=== PATIENT | female | born 1960 | race Caucasian/White ===

== ENCOUNTER → 2023-04-25 13:50 | Outpatient (REF) | payer OTHER, SELFPAY | LOC: RAD 13:50 | PROVIDERS: ATTENDING PHYSICIAN Family Medicine | DX: R10.11 Right upper quadrant pain (principal) | CPT/HCPCS: 76700 ==

== ENCOUNTER → 2023-05-22 07:45 | Outpatient (REF) | payer OTHER, SELFPAY | LOC: HWWDC 07:45 | PROVIDERS: ATTENDING PHYSICIAN Obstetrics & Gynecology; FAMILY PHYSICIAN Family Medicine | DX: Z12.31 Encounter for screening mammogram for malignant neoplasm of breast (principal) | CPT/HCPCS: 77063; 77067 ==

== ENCOUNTER 2024-05-02 06:24 | Day surgery (SDC) | payer MEDICARE, OTHER, SELFPAY | END 2024-05-02 09:59 | disposition home or self-care (01) | LOC: GI 06:24 | PROVIDERS: ATTENDING PHYSICIAN Specialist | DX: Z12.11 Encounter for screening for malignant neoplasm of colon (principal); K57.30 Diverticulosis of large intestine without perforation or abscess without bleeding; Z86.0101 Personal history of adenomatous and serrated colon polyps | CPT/HCPCS: G0105 ==

== ENCOUNTER → 2024-05-27 06:55 | Outpatient (REF) | payer MEDICARE, OTHER, SELFPAY | LOC: HWWDC 06:55 | PROVIDERS: ATTENDING PHYSICIAN Obstetrics & Gynecology; FAMILY PHYSICIAN Family Medicine | DX: Z78.0 Asymptomatic menopausal state (principal); Z12.31 Encounter for screening mammogram for malignant neoplasm of breast | CPT/HCPCS: 77063; 77067; 77080 ==

== ENCOUNTER 2024-06-02 07:51 | Emergency (ER) | payer MEDICARE, OTHER, SELFPAY ==
[2024-06-02 07:58] VITALS: BP 137/83
[2024-06-02 10:11] VITALS: BMI 20.6
[2024-06-02 10:27] LABS: % Basophils 0.3 % (0-2); % Eosinophils 0.2 % (0-6); % Immature Granulocytes 0.4 % (0-0.5); % Lymphocytes 8.2 % (20.5-51.1); % Neutrophils 84.9 % (42.2-75.2); Absolute Lymphocytes 0.9 10^3/uL (1.2-3.4); Absolute Monocytes 0.7 10^3/uL (0.1-0.6); Absolute Neutrophils 9.4 10^3/uL (1.4-6.5); Hematocrit 42.4 % (37.0-47.0); Mean Corp Hgb Conc. 35.4 g/dL (33.0-37.0); Mean Corpuscular Hgb 30.1 pg (27.0-31.0); Mean Platelet Volume 8.1 fL (7.4-10.4); Nucleated Red Blood Cells % 0 %; Platelet Count 204 10^3/uL (130-400); Red Blood Cell Count 4.99 10^6/uL (4.20-5.40); Red Cell Dist. Width 12.1 % (11.5-14.5)
[2024-06-02 10:36] LABS: Urine Albumin Negative (Neg - Trace); Urine Bilirubin Negative (Negative); Urine Character Clear (Clear); Urine Color Yellow; Urine Glucose Negative (Negative); Urine Ketone 3+ (Negative); Urine Leukocyte 2+ (Negative); Urine Nitrite Negative (Negative); Urine Occult Blood Negative (Negative); Urine Urobilinogen Negative (Neg - 1+)
[2024-06-02 11:05] LABS: ALT (SGPT) 17 U/L (0-35); AST (SGOT) 27 U/L (14-36); Albumin 3.9 g/dl (3.5-5.0); Alkaline Phosphatase 90 U/L (38-126); Blood Urea Nitrogen 14 mg/dl (7-17); Calcium 9.2 mg/dl (8.4-10.2); Carbon Dioxide 28 mmol/L (22-30); Chloride 106 mmol/L (98-107); Estimated Creatinine Clearance 55 ml/min; Glucose 102 mg/dl (70-99); Potassium 4.6 mmol/L (3.5-5.1); Sodium 139 mmol/L (135-145); Total Bilirubin 1.1 mg/dl (0.2-1.3); Total Protein 6.8 g/dl (6.3-8.2); eGFR > 60.00
[2024-06-02 11:42] LABS: Urine Red Blood Cell 0-2 /HPF (0-2)
--- NOTE | 2024-06-02 11:52 | ED.GENMED ---
History of Present Illness
General
Chief Complaint: Abdominal Symptoms
Source: patient
Exam Limitations: none
Time Seen by Provider: 06/02/24 09:51
Nursing documentation reviewed up to this point in time: agreed with
History of Present Illness
History of Present Illness:
64-year-old female with no significant past medical history presents for 'pelvic pain' for the past 2 days. While she was here, when she urinated she had 'a little pain and spasm' at the start of urination. She developed low back pain this
morning. She has had a temperature of 99.5. Walking makes the pain worse, sitting still it is relieved. 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
Denies n/v/d/c.
Past History
Past History
ED Past Medical History: None
ED Past Surgical History: Orthopedic
Social History
Tobacco: Non-smoker
Alcohol: None
Drug: None
Personal:
Living: with family
Employment: Employed
Family History
Family History: Hypertension
Review of Systems
Review of Systems
Allergies reviewed?: Yes
All Other Systems: ROS reviewed and negative except as documented in HPI and ROS
Constitutional: Reports fever (low grade)
Respiratory: Denies cough or trouble breathing
Cardiac: Denies chest pain
ABD/GI: Reports abdominal pain and nausea; Denies vomiting, diarrhea, constipated, bloody stools, black stools or anorexia
: Denies dysuria, frequency, difficulty voiding or urgency
Musculoskeletal: Reports back pain (bilateral lower back pain started this a.m.); Denies edema
Skin: Reports no symptoms
Neurological: Reports no symptoms
Phy Exam
Physical Exam
Physical Exam:
GENERAL: No acute distress. A&Ox3.
CONSTITUTIONAL: Afebrile.
EYES: clear, conjunctivae normal
ENMT: moist mucus membranes, Pharynx nl
RESPIRATORY: Regular respirations, nonlabored, lungs clear.
CARDIOVASCULAR: Regular rate and rhythm, no murmurs, no rubs.
GI: Soft, tender suprapubic to LLQ, nondistended, normal BS
MUSCULOSKELETAL: Moves with ease. Well perfused.
SKIN: Warm, dry, pink
PSYCH: Normal mood and affect. Well kept, interactive and appropriate
NEUROLOGIC: Awake, alert and oriented. No focal neurological deficits
Course
Orders/Labs/Results
Orders:
Orders
06/02/24 10:18
Complete Blood Count/With Diff Urgent
Comprehensive Metabolic Panel Urgent
06/02/24 10:27
Urinalysis Reflex To Culture Urgent
Date Specimen was Collected: 06/02/24
Time Specimen was Collected: 10:19
Urine Microscopic Reflex Cult Urgent
Urine Culture Urgent
[place] Source: U
Specimen Description:
Date Specimen was Collected: 06/02/24
Time Specimen was Collected: 10:19
06/02/24 12:03
CT Abd/pel W Iv And Oral Contr Urgent
Comment:
Reason For Exam: suprapubic to LLQ pain, low back pain
Iohexol [Omnipaque] 50 ml .ROUTE .STK-MED ONE
Iohexol [Omnipaque] See Protocol PO NOW STA
06/02/24 12:04
Hydrocortisone Sod Succinate [Solu-Cortef] 200 mg IV NOW STA
06/02/24 12:11
Hydrocortisone Sod Succinate [Solu-Cortef] 100 mg .ROUTE .STK-MED ONE
06/02/24 13:06
Diphenhydramine [Benadryl] 50 mg IV NOW STA
Abnormal Lab Results
06/02/24 06/02/24
10:18 10:27
WBC 11.0 H 10^3/uL
(4.8-10.8)
Absolute Neuts (auto) 9.4 H 10^3/uL
(1.4-6.5)
Absolute Lymphs (auto) 0.9 L 10^3/uL
(1.2-3.4)
Absolute Monos (auto) 0.7 H 10^3/uL
(0.1-0.6)
Neutrophils % 84.9 H %
(42.2-75.2)
Lymphocytes % 8.2 L %
(20.5-51.1)
Glucose 102 H mg/dl
(70-99)
Urine Ketones 3+ A
(Negative)
Leukocyte Esterase Rfl 2+ A
(Negative)
06/02/24 10:18
06/02/24 10:18
Vital Signs
Initial and Last Documented VS:
Initial Vital Signs
Temp Pulse Resp BP Pulse Ox
99.5 F 110 16 137/83 98
06/02/24 07:58 06/02/24 07:58 06/02/24 07:58 06/02/24 07:58 06/02/24 07:58
Last Documented Vital Signs
Temp Pulse Resp BP Pulse Ox
98.7 F 87 17 128/85 97
06/02/24 16:04 06/02/24 16:04 06/02/24 16:04 06/02/24 16:04 06/02/24 16:04
Poultry Slaughterer consulted with Physician
Poultry Slaughterer consulted with physician?: Yes
Name of Physician Consulted: Nate
MDM/Problems Addressed
Differential Diagnosis Includes:
diverticulitis, colitis, UTI
MDM/Problems Addressed:
64-year-old female with no significant past medical history presents for 'pelvic pain' for the past 2 days. While she was here, when she urinated she had 'a little pain and spasm' at the start of urination. She developed low back pain this
morning. She has had a temperature of 99.5. Walking makes the pain worse, sitting still it is relieved. 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
Denies n/v/d/c.
Pt had colonoscopy 05/02/24 showing diverticulosis, nothing else
CBC : WBC 11.0 with mild left shift
CMP: Normal
UA: 2+ leukocyte esterase, 3+ ketones otherwise negative
3:30 PM:
CAT scan abdomen pelvis with p.o. and IV contrast radiology report read:
IMPRESSION: Findings suggesting mild acute diverticulitis of the mid sigmoid colon. No evidence of perforation or abscess formation. New.
Mild free fluid in the pelvis likely reactive.
A couple too small to characterize hypodense hepatic lesions likely small cysts or hemangiomas.
Too small to characterize hypodense left renal lesion likely a benign cyst.
Results discussed with patient and . Patient allergy to penicillin, cannot use Augmentin, patient states she cannot tolerate Bactrim due to GI side effects. 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
concerned about her tendons.
Case discussed with Dr. Ace who agrees since she can't take Augmentin or Bactrim, Cipro and Flagyl for 7 days is the only therapy available to her. Rx sent to her pharmacy, she is not sure whether or not she will take it.
I discussed this with her and also gave her the option of not treating at all as sometimes people resolve your diverticulitis with no medical treatment
She states she would prefer to do the Cipro and Flagyl. I will give it to her for 7 days only due to her concerns and the fact that it is mild diverticulitis.
Complications of diverticulitis discussed with patient and .
Patient given copy of CAT scan report. All questions answered.
Pt ambulated out with normal gait at discharge
*Critical Care Note
Total Time (30-74mins, 75-104mins- exclusive of procedures): Not Applicable
ED Attending Note
-
Portions of this chart may have been created with voice recognition software.� Occasional wrong word or��sound alike� substitutions may have occurred due to the inherent limitations of voice recognition software.
Discharge Plan
Departure
Patient Disposition: Home (Routine Discharge)
Date of Disposition: 06/02/24
Time of Disposition: 15:42
Patient with high blood pressure during this ER visit?: No
Condition: Good
Discharge Problem:
Diverticulitis
Instructions: High-fiber diet, Diverticulitis - Discharge instructions
Prescriptions:
New
ciprofloxacin HCl 500 mg tablet
500 mg PO BID Qty: 14 0RF
metronidazole 500 mg tablet
500 mg PO TID Qty: 21 0RF
Referrals:
Ric Medrano MD [Active] - Call in 1-3 days for appt
Ale Amaro MD [Family Provider] -
Activity Restrictions/Additional Instructions:
As we discussed, your Scan shows you have mild diverticulitis.
I sent a prescription to your pharmacy for Flagyl and Cipro to take for [address] Medrano's office tomorrow let them know you are here and asked them when they went see you for follow-up.
Return here immediately for increasing pain, fever, bloody stools or feeling sicker in any way
Interventions
Interventions:
*Risk Screen - Suicide Last Done: 06/02/24 07:58
*General Assessment Last Done: 06/02/24 10:12
*Neglect/Abuse Screening Last Done: 06/02/24 07:58
*ED- Fall Risk Assessment Last Done: 06/02/24 10:12
*ED COVID-19 Vaccine History Last Done: 06/02/24 10:12
*Nursing Disposition Last Done: 06/02/24 16:04
RI-Hspgsu-Jdcrfovquo Assessment Last Done: 06/02/24 10:12
Discharge Date and Time
Discharge Date/Time: 06/02/24 16:05
Print Language: ESTONIAN
[2024-06-02 11:53] VITALS: BP 127/81
[2024-06-02] MEDS: OMNIPAQUE 50 ML PO (12:08)
[2024-06-02] MEDS: SOLU-CORTEF 200 MG IV (12:21)
[2024-06-02] MEDS: BENADRYL 50 MG IV (13:10)
[2024-06-02 16:04] VITALS: BP 128/85
== END 2024-06-02 16:05 | disposition home or self-care (01) ==
LOC: EMR 07:51
PROVIDERS: Registered Nurse; EMERGENCY PHYSICIAN Emergency Medicine; FAMILY PHYSICIAN Family Medicine
DX: K57.92 Diverticulitis of intestine, part unspecified, without perforation or abscess without bleeding (principal); Z82.49 Family history of ischemic heart disease and other diseases of the circulatory system
CPT/HCPCS: 99284; 96374; 96375; 74177; 80053; 81003; 81015; 85025; 87086; Q9967

== ENCOUNTER → 2024-07-12 07:51 | Outpatient (REF) | payer MEDICARE, OTHER, SELFPAY | LOC: HWRAD 07:51 | PROVIDERS: ATTENDING PHYSICIAN Family Medicine | DX: E78.49 Other hyperlipidemia (principal) | CPT/HCPCS: 75571 ==

== ENCOUNTER 2024-09-22 18:44 | Emergency (ER) | payer MEDICARE, OTHER, SELFPAY ==
[2024-09-22 18:49] VITALS: BP 160/101
[2024-09-22 19:09] LABS: Hematocrit 46.7 % (37.0-47.0); Hemoglobin 16.6 g/dL (12.0-16.0); Mean Corp Hgb Conc. 35.5 g/dL (33.0-37.0); Mean Corpuscular Volume 85.5 fL (81.0-99.0); Nucleated Red Blood Cells % 0 %; Platelet Count 192 10^3/uL (130-400); Red Cell Dist. Width 12.4 % (11.5-14.5)
[2024-09-22 19:28] LABS: ALT (SGPT) 20 U/L (0-35); AST (SGOT) 29 U/L (14-36); Albumin 4.8 g/dl (3.5-5.0); Alkaline Phosphatase 92 U/L (38-126); Blood Urea Nitrogen 13 mg/dl (7-17); Calcium 9.7 mg/dl (8.4-10.2); Carbon Dioxide 29 mmol/L (22-30); Chloride 105 mmol/L (98-107); Glucose 100 mg/dl (70-99); Lipase 47 U/L (23-300); Potassium 4.9 mmol/L (3.5-5.1); Sodium 139 mmol/L (135-145); Total Protein 8.2 g/dl (6.3-8.2); eGFR > 60.00
[2024-09-22 20:42] VITALS: BMI 22.8
--- NOTE | 2024-09-22 20:52 | ED.GENMED ---
History of Present Illness
General
Chief Complaint: Abdominal Pain
Source: patient
Exam Limitations: none
Time Seen by Provider: 09/22/24 20:33
Nursing documentation reviewed up to this point in time: agreed with
History of Present Illness
History of Present Illness:
Patient is a 64-year-old female with history of diverticulitis who presents to the emergency department with lower abdominal pain. She states she started to feel 'lousy 'last night however symptoms were nonspecific. Today�she started with pain in
her central lower abdomen which has progressively worse. She did have a few episodes of loose stools today with bright red blood. Patient states that she has since had multiple bowel movements later this evening/while in the emergency department
that had no blood in it.
Patient denies any known fevers. No chills. No dysuria or hematuria. Patient denies any lightheadedness or shortness of breath. She has had intermittent dizziness when turning her head today.
Patient states she was down in [place] when symptoms initially began and she attempted to visit a few local hospitals in [place] however the weights were so long she decided to come back home to [place].
Patient states she had her first episode of diverticulitis this past June. She has an appointment scheduled with GI, Dr. Medrano in October.
Past History
Past History
ED Past Medical History: None
ED Past Surgical History: Orthopedic
Social History
Tobacco: Non-smoker
Alcohol: None
Drug: None
Personal:
Living: with family
Employment: Employed
Family History
Family History: Hypertension
Review of Systems
Review of Systems
Allergies reviewed?: Yes
All Other Systems: ROS reviewed and negative except as documented in HPI and ROS
Phy Exam
Physical Exam
Physical Exam:
Vitals: Hypertensive, otherwise vital signs stable. Afebrile
General: Patient is well appearing, no acute distress. Nontoxic appearing
Skin: Warm and dry, no rashes or lesions
Head: Normocephalic, atraumatic
Eyes: Sclera nonicteric. No nystagmus.
Throat: Protecting airway
Neck: Normal ROM, no cervical spine tenderness, no meningismus
Cardiac: Regular rate and rhythm, no murmurs.
Pulm: Normal respiratory effort, no wheezes, rales, rhonchi heard on exam
Abdomen: Abdomen soft. Moderate tenderness in suprapubic region/left lower quadrant. No rebound tenderness or guarding.
Rectal: No evidence of active bleeding. No hemorrhoids.
Extremities: No evidence of cyanosis or edema
Neuro: AAOx3. Grossly intact
Psychiatric: Normal affect.
Course
Orders/Labs/Results
Orders:
Orders
09/22/24 19:02
Complete Blood Count/With Diff Urgent
Comprehensive Metabolic Panel Urgent
Lipase Urgent
09/22/24 20:49
CT Abd/pelvis W Iv Cont Urgent
Comment:
Reason For Exam: lower abdominal pain, hx diverticulitis
0.9% Sodium Chloride 1000 ml [Nss] 1,000 ml IV BOLUS
Diphenhydramine [Benadryl] 50 mg IV NOW STA
Hydrocortisone Sod Succinate [Solu-Cortef] 200 mg IV NOW STA
09/22/24 21:10
Urinalysis Reflex To Culture Urgent
Date Specimen was Collected: 09/22/24
Time Specimen was Collected: 21:09
Urine Microscopic Reflex Cult Urgent
Urine Culture Urgent
[place] Source: U
Specimen Description:
Date Specimen was Collected: 09/22/24
Time Specimen was Collected: 21:09
09/22/24 23:32
Cefuroxime Axetil [Ceftin] 500 mg PO NOW STA
MetroNIDAZOLE [Flagyl] 500 mg PO NOW STA
09/22/24 23:45
Cefuroxime Axetil [Ceftin] 500 mg PO NOW STA
Abnormal Lab Results
09/22/24 09/22/24
19:02 21:10
RBC 5.46 H 10^6/uL
(4.20-5.40)
Hgb 16.6 H g/dL
(12.0-16.0)
Absolute Neuts (auto) 8.6 H 10^3/uL
(1.4-6.5)
Neutrophils % 81.1 H %
(42.2-75.2)
Lymphocytes % 12.6 L %
(20.5-51.1)
Glucose 100 H mg/dl
(70-99)
Urine Ketones 3+ A
(Negative)
Leukocyte Esterase Rfl 3+ A
(Negative)
Urine WBC (Reflex) 11-15 A /HPF
(0-5)
Urine Bacteria (Reflex) Moderate A
(Negative)
09/22/24 19:02
09/22/24 19:02
Vital Signs
Initial and Last Documented VS:
Initial Vital Signs
Temp Pulse Resp BP Pulse Ox
99 F 98 20 160/101 99
09/22/24 18:49 09/22/24 18:49 09/22/24 18:49 09/22/24 18:49 09/22/24 18:49
Last Documented Vital Signs
Temp Pulse Resp BP Pulse Ox
99 F 98 20 139/74 95
09/22/24 18:49 09/22/24 18:49 09/22/24 18:49 09/22/24 23:00 09/22/24 23:30
MDM/Problems Addressed
Differential Diagnosis Includes:
Not limited to: Diverticulitis, cystitis, thrombosed hemorrhoids, anal fissure, acute dehydration, etc.
MDM/Problems Addressed:
64-year-old female with two days of lower abdominal pain associated with episode of bloody stool. No fevers or vomiting. Vital and exam as above. Differential includes diverticulitis, especially with patient history, appendicitis, cystitis,
pyelonephritis, etc. ED plan: check labs, UA, CT scan abdomen/pelvis. Patient also reports dizziness sensation throughout today only with turning of head. Symptoms seem peripheral in nature. She declined any medication or analgesia at this time.
Update: labs reviewed. CBC without clinically significant abnormalities. Rectal exam revealed no evidence of active bleeding and hemoglobin stable. Chemistry unremarkable. Urine does appear mildly infected. CT pending.
Update: CT scan showed acute diverticulitis of mid sigmoid colon. No evidence of complication, including abscess or perforation. Given patient is afebrile with no leukocytosis and pain well controlled � feel stable for discharge home w/ oral
antibiotics. She would like to avoid fluoroquinolones and states last episode of diverticulitis was treated with cefuroxime which she would prefer again. Discussed addition of Flagyl for complete coverage. Will discharge home on 10 days of
antibiotics. Strict return precautions discussed. Given second episode in a few months � advised G.I. follow up. She is scheduled in October with Dr. Medrano.
Chronic conditions affecting care:
Diverticulitis
Acute Exacerbation and/or Progression of Chronic Illness:
Acute diverticulitis
*Radiology
Radiology exam reviewed: radiology read reviewed
*Pulse Oximetry
SaO2: 97
Oxygen Mode of Delivery: Room air
Patient hypoxic: no
*EKG
Interpreted by ED Provider?: NA
*Local Company Truck Driver Interpretation
Rate: Local Company Truck Driver- N/A
*Critical Care Note
Total Time (30-74mins, 75-104mins- exclusive of procedures): Not Applicable
ED Attending Note
-
Portions of this chart may have been created with voice recognition software.� Occasional wrong word or��sound alike� substitutions may have occurred due to the inherent limitations of voice recognition software.
Discharge Plan
Departure
Patient Disposition: Home (Routine Discharge)
Date of Disposition: 09/22/24
Time of Disposition: 23:33
Patient with high blood pressure during this ER visit?: Yes
Condition: Good
Discharge Problem:
Acute diverticulitis
Instructions: Clear Liquid Diet, Diverticulitis - Discharge instructions, BLOOD PRESSURE
Prescriptions:
New
cefuroxime axetil 500 mg tablet
500 mg PO BID 10 Days Qty: 20 0RF
metronidazole 500 mg tablet
500 mg PO TID 10 Days Qty: 30 0RF
No Action
ciprofloxacin HCl 500 mg tablet
500 mg PO BID Qty: 14 0RF
metronidazole 500 mg tablet
500 mg PO TID Qty: 21 0RF
Referrals:
Ric Medrano MD [Active, Gastroenterology] - Keep scheduled appt
Ale Amaro MD [Family Provider, Family Practice] - Follow up in 5-7 days
Activity Restrictions/Additional Instructions:
RETURN TO THE EMERGENCY DEPARTMENT WITH ANY FEVER, CHILLS, PERSISTENT/WORSENING ABDOMINAL PAIN, INTRACTABLE NAUSEA/VOMITING, PERSISTENT BLOOD IN STOOL, WORSENING CURRENT SYMPTOMS, OR ANY OTHER CONCERNS
- As discussed�your CT scan showed acute diverticulitis of your sigmoid colon. You were started on a course of antibiotics. You should take the cefuroxime twice a day for 10 days. You should take the Flagyl 3 times a day for 10 days. You cannot
drink alcohol while taking Flagyl.
- I would recommend a clear liquid diet over the next few days and slowly advance to low fiber.
- It is important stay well-hydrated. Take Tylenol as needed for pain.
- Follow-up with your GI doctor and primary care provider for further evaluation/management to ensure that your symptoms are improved
Monitor your symptoms closely and return to the emergency department with any acute worsening/new symptoms or any other concerns
Interventions
Interventions:
*Risk Screen - Suicide Last Done: 09/22/24 18:49
*General Assessment Last Done: 09/22/24 18:49
*Neglect/Abuse Screening Last Done: 09/22/24 18:49
*ED- Fall Risk Assessment Last Done: 09/22/24 20:42
*ED COVID-19 Vaccine History Last Done: 09/22/24 20:42
*Nursing Disposition Last Done: 09/23/24 00:25
IY-Uyaadn-Cvvwkopdlx Assessment Last Done: 09/22/24 20:42
Discharge Date and Time
Discharge Date/Time: 09/23/24 00:26
Print Language: SINHALA
[2024-09-22] MEDS: NSS 1000 IV (21:04)
[2024-09-22] MEDS: BENADRYL 50 MG IV (21:05)
[2024-09-22] MEDS: SOLU-CORTEF 200 MG IV (21:05)
[2024-09-22 21:17] LABS: Urine Character Clear (Clear)
[2024-09-22 21:22] LABS: Urine Squamous Cell 0-2 /LPF (Few)
[2024-09-22 21:23] LABS: Urine Red Blood Cell 0-2 /HPF (0-2)
[2024-09-22 22:33] VITALS: BP 152/83
[2024-09-22 23:00] VITALS: BP 139/74
[2024-09-23] MEDS: FLAGYL 500 MG PO (00:16)
[2024-09-23] MEDS: CEFTIN 500 MG PO (00:18)
== END 2024-09-23 00:26 | disposition home or self-care (01) ==
LOC: EMR 18:44
PROVIDERS: Emergency Medicine; Physician Assistant; EMERGENCY PHYSICIAN Emergency Medicine; FAMILY PHYSICIAN Family Medicine
DX: K57.33 Diverticulitis of large intestine without perforation or abscess with bleeding (principal); R42 Dizziness and giddiness
CPT/HCPCS: 96374; 96375; 96361; 99284; 74177; 80053; 81003; 81015; 83690; 85025; 87086; Q9967

== ENCOUNTER 2024-10-09 21:02 | Emergency (ER) | payer MEDICARE, OTHER, SELFPAY ==
[2024-10-09 21:09] VITALS: BP 128/89
[2024-10-09 21:51] LABS: Urine Character Slightly Cloudy (Clear)
[2024-10-09 22:05] LABS: ALT (SGPT) 25 U/L (0-35); AST (SGOT) 31 U/L (14-36); Albumin 4.9 g/dl (3.5-5.0); Alkaline Phosphatase 94 U/L (38-126); Blood Urea Nitrogen 9 mg/dl (7-17); Calcium 9.7 mg/dl (8.4-10.2); Carbon Dioxide 23 mmol/L (22-30); Chloride 106 mmol/L (98-107); Glucose 107 mg/dl (70-99); Lipase 53 U/L (23-300); Potassium 4.1 mmol/L (3.5-5.1); Sodium 137 mmol/L (135-145); Total Protein 8.4 g/dl (6.3-8.2); eGFR > 60.00
[2024-10-09 22:45] LABS: Urine White Cell 30-40 /HPF (0-5)
--- NOTE | 2024-10-09 23:27 | ED.GENMED ---
History of Present Illness
<Rekha Forbes PA-C - Last Filed: 10/10/24 12:04>
General
Chief Complaint: Fever
Source: patient and records
Exam Limitations: none
Time Seen by Provider: 10/09/24 23:10
History of Present Illness
History of Present Illness:
64yoF with a history of diverticulitis presenting for evaluation of diarrhea and fever. She was seen in the ED on 09/22/2024 for abdominal pain and CT showed mild acute diverticulitis. She was prescribed cefuroxime and Flagyl which she completed 1
week ago. She started to experience profuse diarrhea last night. She was seen by gastroenterology, Dr. Medrano, earlier today and was given a prescription for C.diff testing. She spiked a fever of 101 this evening and decided to come to the ED.
She reports right lower abdominal pain. Patient had about 4-5 episodes of diarrhea while in the waiting room. Patient also reports headaches for the past several weeks. She had an episode of vertigo last month and had some word finding
difficulties for 2 days. The symptoms have resolved but she continues to have headaches.
Past History
<Rekha Forbes PA-C - Last Filed: 10/10/24 12:04>
Past History
ED Past Medical History: None
ED Past Surgical History: Orthopedic
Social History
Tobacco: Non-smoker
Alcohol: None
Drug: None
Personal:
Living: with family
Employment: Employed
Family History
Family History: Hypertension
Phy Exam
<Rekha Forbes PA-C - Last Filed: 10/10/24 12:04>
General Physical Exam
General Presentation: well appearing and no apparent distress
General Skin: warm and dry
General Habitus: normal
General Mental: alert
ENT Exam
ENT Exam: normocephalic
Pulmonary Exam
Pulmonary Exam: no respiratory distress
Gastrointestinal Exam
Gastrointestinal Exam: soft, non distended and other (Mild RLQ tenderness)
Neurological Exam
Neurological Exam: alert
[place] Coma Scale
Eye Opening: Spontaneous
Verbal Response: Oriented
Motor Response: Obeys Commands
GCS Total Score: 15
Skin Exam
Skin Exam: normal color and warm/dry
Psychiatric Exam
Psychiatric Exam: normal mood/affect
<Shaji Tobias Jr., PA-C - Last Filed: 10/10/24 03:06>
[place] Coma Scale
GCS Total Score: 15
Course
<eRkha Forbes PA-C - Last Filed: 10/10/24 12:04>
Orders/Labs/Results
Orders:
Orders
10/09/24 21:37
Comprehensive Metabolic Panel Urgent
Lipase Urgent
Urine Microscopic Reflex Cult Urgent
Urine Reflex Culture from UA [Urinalysis Reflex To Culture] Urgent
Date Specimen was Collected: 10/09/24
Time Specimen was Collected: 21:13
Urine Culture Urgent
[place] Source: U
Specimen Description:
Date Specimen was Collected: 10/09/24
Time Specimen was Collected: 21:13
10/09/24 23:25
0.9% Sodium Chloride 1000 ml [Nss] 1,000 ml IV BOLUS
10/09/24 23:26
Diphenhydramine [Benadryl] 50 mg IV NOW STA
Hydrocortisone Sod Succinate [Solu-Cortef] 200 mg IV NOW STA
10/09/24 23:36
Complete Blood Count/With Diff Urgent
Lactic Acid Urgent
10/10/24
CT Abd/pelvis W Iv Cont Urgent
Reason For Exam: RLQ pain, fever, diarrhea
CT Head W/o Iv Contrast Urgent
Reason For Exam: headache, dizziness
Abnormal Lab Results
10/09/24 10/09/24
21:37 23:36
WBC 13.3 H 10^3/uL
(4.8-10.8)
Absolute Neuts (auto) 11.6 H 10^3/uL
(1.4-6.5)
Absolute Lymphs (auto) 0.8 L 10^3/uL
(1.2-3.4)
Absolute Monos (auto) 0.8 H 10^3/uL
(0.1-0.6)
Neutrophils % 87.6 H %
(42.2-75.2)
Lymphocytes % 6.0 L %
(20.5-51.1)
Glucose 107 H mg/dl
(70-99)
Lactic Acid 0.6 L mmol/L
(0.7-2.0)
Total Protein 8.4 H g/dl
(6.3-8.2)
Urine Ketones 1+ A
(Negative)
Ur Occult Blood Reflex 1+ A
(Negative)
Leukocyte Esterase Rfl 3+ A
(Negative)
Urine RBC 7-10 A /HPF
(0-2)
Urine WBC (Reflex) 30-40 A /HPF
(0-5)
Urine Bacteria (Reflex) Moderate A
(Negative)
Urine Albumin (Reflex) 1+ A
(Neg - Trace)
10/09/24 23:36
10/09/24 21:37
Vital Signs
Initial and Last Documented VS:
Initial Vital Signs
Temp Pulse Resp BP Pulse Ox
99.0 F 110 20 128/89 96
10/09/24 21:09 10/09/24 21:09 10/09/24 21:09 10/09/24 21:09 10/09/24 21:09
Last Documented Vital Signs
Temp Pulse Resp BP Pulse Ox
99.0 F 110 20 107/77 95
10/09/24 21:09 10/09/24 21:09 10/09/24 21:09 10/10/24 03:00 10/10/24 03:15
<Shaji Tobias Jr., PA-C - Last Filed: 10/10/24 03:06>
Orders/Labs/Results
Orders:
Orders
10/09/24 21:37
Comprehensive Metabolic Panel Urgent
Lipase Urgent
Urine Microscopic Reflex Cult Urgent
Urine Reflex Culture from UA [Urinalysis Reflex To Culture] Urgent
Date Specimen was Collected: 10/09/24
Time Specimen was Collected: 21:13
Urine Culture Urgent
[place] Source: U
Specimen Description:
Date Specimen was Collected: 10/09/24
Time Specimen was Collected: 21:13
10/09/24 23:25
0.9% Sodium Chloride 1000 ml [Nss] 1,000 ml IV BOLUS
10/09/24 23:26
Diphenhydramine [Benadryl] 50 mg IV NOW STA
Hydrocortisone Sod Succinate [Solu-Cortef] 200 mg IV NOW STA
10/09/24 23:36
Complete Blood Count/With Diff Urgent
Lactic Acid Urgent
10/10/24
CT Abd/pelvis W Iv Cont Urgent
Reason For Exam: RLQ pain, fever, diarrhea
CT Head W/o Iv Contrast Urgent
Reason For Exam: headache, dizziness
Abnormal Lab Results
10/09/24 10/09/24
21:37 23:36
WBC 13.3 H 10^3/uL
(4.8-10.8)
Absolute Neuts (auto) 11.6 H 10^3/uL
(1.4-6.5)
Absolute Lymphs (auto) 0.8 L 10^3/uL
(1.2-3.4)
Absolute Monos (auto) 0.8 H 10^3/uL
(0.1-0.6)
Neutrophils % 87.6 H %
(42.2-75.2)
Lymphocytes % 6.0 L %
(20.5-51.1)
Glucose 107 H mg/dl
(70-99)
Lactic Acid 0.6 L mmol/L
(0.7-2.0)
Total Protein 8.4 H g/dl
(6.3-8.2)
Urine Ketones 1+ A
(Negative)
Ur Occult Blood Reflex 1+ A
(Negative)
Leukocyte Esterase Rfl 3+ A
(Negative)
Urine RBC 7-10 A /HPF
(0-2)
Urine WBC (Reflex) 30-40 A /HPF
(0-5)
Urine Bacteria (Reflex) Moderate A
(Negative)
Urine Albumin (Reflex) 1+ A
(Neg - Trace)
10/09/24 23:36
10/09/24 21:37
Vital Signs
Initial and Last Documented VS:
Initial Vital Signs
Temp Pulse Resp BP Pulse Ox
99.0 F 110 20 128/89 96
10/09/24 21:09 10/09/24 21:09 10/09/24 21:09 10/09/24 21:09 10/09/24 21:09
Last Documented Vital Signs
Temp Pulse Resp BP Pulse Ox
99.0 F 110 20 107/77 95
10/09/24 21:09 10/09/24 21:09 10/09/24 21:09 10/10/24 03:00 10/10/24 03:15
[place];Rekha Forbes PA-C - Last Filed: 10/10/24 12:04>
MDM/Problems Addressed
Differential Diagnosis Includes:
64yoF here with diarrhea x 1 day. Reports a temp of 101 earlier today but afebrile on arrival. Recent episode of diverticulitis, finished abx 1 week ago. Denies L sided pain but does have RLQ discomfort. She is nontoxic-appearing. Mild right lower
quadrant tenderness on exam without signs of peritonitis. Differential diagnosis includes but is not limited to: Colitis, C. difficile, gastroenteritis, less likely diverticular abscess
Initial ED plan: Check CBC, CMP, lactate, C.diff testing, and CT abdomen. Patient also c/o headaches x several weeks, will also obtain CT head. IV fluid bolus.
Final assessment: Labs show a WBC of 13.3. Lactate WNL. Case signed out to Ed Jatinder FREITAS awaiting imaging results.
<Rekha Forbes PA-C - Last Filed: 10/10/24 12:04>
*Pulse Oximetry
SaO2: 96
Oxygen Mode of Delivery: Room air
<Shaji Tobias Jr., PA-C - Last Filed: 10/10/24 03:06>
*Pulse Oximetry
Patient hypoxic: no (94)
*Critical Care Note
Total Time (30-74mins, 75-104mins- exclusive of procedures): Not Applicable
<Shaji Tobias Jr., PA-C - Last Filed: 10/10/24 03:06>
Update Note
Update Note:
CT read showing mild colitis of the right side but specifically noted to not seem to be consistent with C. difficile. No bowel movements throughout the stay here. Patient comfortable here with normal vital signs at time of reassessment. Advised
for close outpatient follow-up with GI. Return precautions given.
ED Attending Note
<Rekha Forbes PA-C - Last Filed: 10/10/24 12:04>
-
Portions of this chart may have been created with voice recognition software.� Occasional wrong word or��sound alike� substitutions may have occurred due to the inherent limitations of voice recognition software.
Discharge Plan
Departure
Patient Disposition: Home (Routine Discharge)
Date of Disposition: 10/10/24
Time of Disposition: 03:04
Patient with high blood pressure during this ER visit?: No
Condition: Good
Covid-19: Not Applicable
Discharge Problem:
Colitis
Instructions: Colitis
Prescriptions:
New
dicyclomine 20 mg tablet
20 mg PO QID PRN (Reason: abdominal pain) Qty: 10 0RF
No Action
ciprofloxacin HCl 500 mg tablet
500 mg PO BID Qty: 14 0RF
metronidazole 500 mg tablet
500 mg PO TID Qty: 21 0RF
cefuroxime axetil 500 mg tablet
500 mg PO BID 10 Days Qty: 20 0RF
metronidazole 500 mg tablet
500 mg PO TID 10 Days Qty: 30 0RF
Referrals:
Ale Amaro MD [Family Provider, [facility]]
Activity Restrictions/Additional Instructions:
You came to the emergency department today with concerns of abdominal pain. Here you are found to have a mild colitis to the right side. Please adjust your diet and use Bentyl as needed and follow-up closely with your GI doctor. Return for any
worsening, new or concerning symptoms.
Interventions
Interventions:
*Risk Screen - Suicide Last Done: 10/09/24 23:00
*General Assessment Last Done: 10/09/24 21:09
*Neglect/Abuse Screening Last Done: 10/09/24 23:00
*ED- Fall Risk Assessment Last Done: 10/09/24 23:00
*Nursing Disposition Last Done: 10/10/24 03:41
Discharge Date and Time
Discharge Date/Time: 10/10/24 03:41
Print Language: POLISH
[2024-10-09 23:34] VITALS: BP 114/74
[2024-10-09] MEDS: NSS 1000 IV (23:46)
[2024-10-09] MEDS: BENADRYL 50 MG IV (23:46)
[2024-10-09] MEDS: SOLU-CORTEF 200 MG IV (23:47)
[2024-10-10] VITALS: BP 119/78
[2024-10-10 00:01] LABS: Hematocrit 41.8 % (37.0-47.0); Hemoglobin 14.6 g/dL (12.0-16.0); Mean Corp Hgb Conc. 34.9 g/dL (33.0-37.0); Mean Corpuscular Volume 84.6 fL (81.0-99.0); Nucleated Red Blood Cells % 0 %; Platelet Count 192 10^3/uL (130-400); Red Cell Dist. Width 12.4 % (11.5-14.5)
[2024-10-10 01:52] VITALS: BP 116/73
[2024-10-10 02:00] VITALS: BP 107/72
[2024-10-10 03:00] VITALS: BP 107/77
== END 2024-10-10 03:41 | disposition home or self-care (01) ==
LOC: EMR 21:02
PROVIDERS: Student in an Organized Health Care Education/Training Program; EMERGENCY PHYSICIAN Emergency Medicine; FAMILY PHYSICIAN Family Medicine
DX: K52.9 Noninfective gastroenteritis and colitis, unspecified (principal)
CPT/HCPCS: 96374; 96375; 96361; 99284; 70450; 74177; 80053; 81003; 81015; 83605; 83690; 85025; 87086; Q9967